=== PATIENT | female | born 1990 | race Caucasian/White ===

== ENCOUNTER 2018-07-15 16:11 | Emergency (ER) | payer BC ==
[2018-07-15 16:37] VITALS: RESP 16
--- NOTE | 2018-07-15 17:26 | ED PDOC ---
HPI: Skin/Bite Injury Time Seen by Provider: 07/15/18 16:41 Chief Complaint (Nursing): Bite Chief Complaint (Provider): Bite History Per: Patient Onset/Duration Of Symptoms: Days (yesterday morning) Location Of Injury: Left: Knee Additional Complaint(s): 27 year old female presents to the ED for evaluation s/p dog bite to the left knee yesterday morning. Patient reports she was bitten by a dog in an unprovoked attack on the street. She does not know the passenger solicitor or if the dog was UTD on vaccinations. Patient went to urgent care in [place] this morning where she was given antibiotics (Bactrim) which she has taken one dose of so far and was advised to come to the ED for rabies vaccination. 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 PMD: Joana Jorgensen Tetanus: UTD - Animal Bite Description Of The Attack: Unprovoked Attack Description Of The Animal: Unknown Animal's Immunization Status: Unknown Past Medical History Reviewed: Historical Data, Nursing Documentation, Vital Signs Vital Signs: Last Vital Signs Temp 98.6 F 07/15/18 16:37 Pulse 72 07/15/18 16:37 Resp 16 07/15/18 16:37 BP 131/90 07/15/18 16:37 Pulse Ox 96 07/15/18 16:37 - Medical History PMH: No Chronic Diseases - Surgical History Surgical History: No Surg Hx - Family History Family History: States: Unknown Family Hx - Immunization History Hx Tetanus Toxoid Vaccination: Yes (May 2013) - Home Medications Home Medications: Ambulatory Orders Medication Instructions Recorded RX: Naproxen 500 mg PO BID PRN #20 tab 07/15/18 - Allergies Allergies/Adverse Reactions: Allergies Allergy/AdvReac Type Severity Reaction Status Date / Time Penicillins Allergy PAIN Verified 07/15/18 16:36 Review of Systems ROS Statement: Except As Marked, All Systems Reviewed And Found Negative Skin: Positive for: Other (dog bite on knee) Physical Exam - Reviewed Nursing Documentation Reviewed: Yes Vital Signs Reviewed: Yes - Physical Exam Comments: GENERAL APPEARANCE: Patient is awake, alert, oriented x 3, in no acute distress. SKIN: Warm, dry; (-) cyanosis. NECK: Supple ENT: Mucus membranes moist. Airway patent, (-) stridor. CHEST AND RESPIRATORY: (-) rales, (-) rhonchi, (-) wheezes; breath sounds equal bilaterally. HEART AND CARDIOVASCULAR: (-) irregularity KNEE: Linear superficial abrasions to the lateral aspect of the left knee x2, no active bleeding, mild surrounding ecchymosis, no drainage, (+) mild tenderness, (-) edema, full ROM throughout lower extremity. No instability on valgus and varus stress, negative anterior and posterior drawer sign. NEURO AND PSYCH: Mental status as above. Gait: steady. Speech: clear. (-) facial asymmetry - ECG O2 Sat by Pulse Oximetry: 96 (RA) Pulse Ox Interpretation: Normal Medical Decision Making Medical Decision Making: Time: 1724 Clinical Impression: Dog bite, need for rabies vaccine Initial Plan: --Rabies Vaccine --Rabies immune globulin --Re-evaluation 1914 On re-evaluation, patient offers no other symptoms. On exam, patient remains AAOx3, in no acute distress. Vitals stable. Lab/Diagnostic results d/w the patient in great detail. Diagnosis of need for rabies vaccine, dog bite d/w the patient. Based on history, exam and diagnostic results, plan will be for outpatient follow up. Patient advised to follow up on days 07/18, 07/22, and 07/29. Patient instructed to follow-up with pmd / referral provided / the clinic in 1- 2 days without fail. Advised to take medication as prescribed from clinic and today's ED visit. Return to the emergency room at any time for any new or worsening symptoms. Patient states she fully agrees with and understands discharge instructions. States that she agrees with the plan and disposition. Verbalized and repeated discharge instructions and plan. I have given the patient opportunity to ask any additional questions. -- Scribe Attestation: Documented by Evelin Razo, acting as a scribe for Sally Aquino PA-C. Provider Scribe Attestation: All medical record entries made by the Scribe were at my direction and personally dictated by me. I have reviewed the chart and agree that the record accurately reflects my personal performance of the history, physical exam, medical decision making, and the department course for this patient. I have also personally directed, reviewed, and agree with the discharge instructions and disposition. Disposition - Clinical Impression Clinical Impression: Dog bite of left lower leg, Need for rabies vaccination - Patient ED Disposition Is Patient to be Admitted: No Counseled Patient/Family Regarding: Studies Performed, Diagnosis, Need For Followup, Rx Given - Disposition Referrals: Joana Jorgensen MD [Family Provider] - Disposition: Routine/Home Disposition Time: 19:15 Condition: IMPROVED Additional Instructions: FOLLOW UP ON 07/18, 07/22, 07/29 FOR RABIES VACCINE SERIES. The emergency medical care you received today was directed at your acute symptoms. If you were prescribed any medication, please fill it and take as directed. It may take several days for your symptoms to resolve. Return to the Emergency Department if your symptoms worsen, do not improve, or if you have any other problems. Please contact your doctor in 2 days for re-evaluation and follow up / or call one of the physicians/clinics you have been referred to that are listed on the Patient Visit Information form that is included in your discharge packet. Bring any paperwork you were given at discharge with you along with any medications you are taking to your follow up visit. Our treatment cannot replace ongoing medical care by a primary care provider (PCP) outside of the emergency department. Prescriptions: RX: Naproxen 500 mg PO BID PRN #20 tab PRN Reason: Pain, Moderate (4-7) Instructions: Rabies, Animal Bites (DC), Wound Care, Rabies Immune Globulin (Human), Rabies Vaccine Forms: [employer] (French) Print Language: HEBREW - POA Present On Arrival: None
[2018-07-15] MEDS ORDERED: Rabies Immune Globulin 150 INTLU/ML VIAL IM ONE (18:00)
[2018-07-15 19:40] VITALS: BP 123/85; PULSE 76; TEMP 98.2
[2018-07-16 00:14] VITALS: O2SAT 96
== END 2018-07-15 19:39 | disposition home or self-care (01) ==
LOC: H.ER 16:11
DX: S81.852A Open bite, left lower leg, initial encounter (principal); Z23 Encounter for immunization; Z88.0 Allergy status to penicillin; W54.0XXA Bitten by dog, initial encounter

== ENCOUNTER 2018-07-18 07:44 | Emergency (ER) | payer BC ==
[2018-07-18 07:51] VITALS: RESP 17; TEMP 98.4; O2SAT 98
--- NOTE | 2018-07-18 08:30 | ED PDOC ---
HPI: General Adult Additional Complaint(s): Pt seen and examined at bedside with attending. 27F p/w 2nd Rabies vaccine as treatment for unidentified dog bite that was unprovoked. Pt denies any fevers, chills, wound redness and she has continued to take antibiotics as prescribed. <Emma Merino - Last Filed: 07/18/18 08:56> <Sally Montenegro - Last Filed: 07/21/18 19:34> Time Seen by Provider: 07/18/18 08:10 Chief Complaint (Nursing): Rabies Vaccine Series Supervising Attending Note - Supervising Attending Note The Documented history was done by the: Physician Rubber Extrusion Machine Operator The documented physical exam was done by the: Physician Rubber Extrusion Machine Operator The documented procedures were done by the: Physician Rubber Extrusion Machine Operator - Attestation: I have personally seen and examined this patient.: Yes I have fully participated in the care of the patient.: Yes I have reviewed all pertinent clinical information, including history, physical exam and plan: Yes - Notes: Notes:: Pt is tolerating vaccinations well without side effects. Bite wounds are now healing well. <Sally Montenegro - Last Filed: 07/21/18 19:34> Past Medical History Vital Signs: Last Vital Signs Temp 36.9 C 07/18/18 07:50 Pulse 72 07/18/18 07:50 Resp 17 07/18/18 07:50 BP 121/77 07/18/18 07:50 Pulse Ox 98 07/18/18 07:50 - Family History Family History: States: Unknown Family Hx - Immunization History Hx Tetanus Toxoid Vaccination: Yes (May 2013) <Emma Merino - Last Filed: 07/18/18 08:56> Vital Signs: Last Vital Signs Temp 98.4 F 07/18/18 07:50 Pulse 72 07/18/18 07:50 Resp 17 07/18/18 07:50 BP 121/77 07/18/18 07:50 Pulse Ox 98 07/18/18 08:56 <Sally Montenegro - Last Filed: 07/21/18 19:34> - Home Medications Home Medications: Ambulatory Orders Medication Instructions Recorded RX: Naproxen 500 mg PO BID PRN #20 tab 07/15/18 - Allergies Allergies/Adverse Reactions: Allergies Allergy/AdvReac Type Severity Reaction Status Date / Time Penicillins Allergy PAIN Verified 07/18/18 08:09 Review of Systems ROS Statement: Except As Marked, All Systems Reviewed And Found Negative <Emma Merino - Last Filed: 07/18/18 08:56> Physical Exam - Reviewed Vital Signs Reviewed: Yes - Physical Exam Appears: Positive for: Well, Non-toxic, No Acute Distress Skin: Positive for: Normal Color, Warm, Dry Eye Exam: Positive for: Normal appearance ENT: Positive for: Normal ENT Inspection Neck: Positive for: Supple Cardiovascular/Chest: Positive for: Regular Rate, Rhythm. Negative for: Murmur Respiratory: Positive for: Normal Breath Sounds. Negative for: Crackles, Rales, Rhonchi Gastrointestinal/Abdominal: Positive for: Normal Exam, Bowel Sounds, Soft. Negative for: Tenderness Extremity: Positive for: Normal ROM, Other (LEFT knee with non-erythematous, non edematous well healing bites). Negative for: Tenderness, Swelling Neurologic/Psych: Positive for: Alert, Oriented <Emma Merino - Last Filed: 07/18/18 08:56> - ECG O2 Sat by Pulse Oximetry: 98 <Emma Merino - Last Filed: 07/18/18 08:56> Medical Decision Making Medical Decision Making: Asymptomatic and will receive 2nd vaccine dose. <Emma Merino - Last Filed: 07/18/18 08:56> Disposition - Patient ED Disposition Is Patient to be Admitted: No Counseled Patient/Family Regarding: Need For Followup - Disposition Disposition: Routine/Home Disposition Time: 08:53 <Emma Merino - Last Filed: 07/18/18 08:56> <Sally Montenegro - Last Filed: 07/21/18 19:34> - Clinical Impression Clinical Impression: Need for rabies vaccination, Dog bite of left lower leg - Disposition Condition: STABLE Additional Instructions: Return for 3rd dose the week of August 05. Return earlier for any signs of wound worsening, fevers, chills Forms: [facility] (Niuean), [facility] School/Work Excuse Print Language: POLISH
[2018-07-18 10:00] VITALS: BP 117/64; PULSE 68
== END 2018-07-18 10:00 | disposition home or self-care (01) ==
LOC: H.ER 07:44
DX: S81.832A Puncture wound without foreign body, left lower leg, initial encounter (principal); W54.0XXA Bitten by dog, initial encounter; Y92.89 Other specified places as the place of occurrence of the external cause; Z88.0 Allergy status to penicillin